=== PATIENT | female | born 1950 | race Caucasian/White ===

== ENCOUNTER 2016-07-26 07:30 | Inpatient (IN) | payer BC ==
--- NOTE | 2016-07-19 15:07 | HP ---
PREOPERATIVE HISTORY AND PHYSICAL: DATE OF ADMISSION/SURGERY: 07/26/16 DATE OF OFFICE VISIT: 07/18/16 ATTENDING PHYSICIAN: Dr. Margarita Dick. (DICTATED BY JEN ACUNA) PROCEDURE: Left total hip replacement. CHIEF COMPLAINT: Left hip pain. 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 Due to failure of conservative management, the patient would like to proceed with left total hip replacement. This is scheduled with Dr. Dick on 07/26/16. PAST MEDICAL HISTORY: Negative. PAST SURGICAL HISTORY: Right knee arthroscopy with partial meniscectomy. MEDICATIONS: Advil p.r.n. ALLERGIES: LODINE and SULFA. FAMILY HISTORY: Cancers and alcoholism. 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 She denies tobacco, alcohol, or recreational drug use. REVIEW OF SYSTEMS: A complete 14-point review of systems was reviewed with the patient and positive for syncopal episodes. Otherwise negative including negative for known anesthesia problems, negative for history of DVT, negative for MRSA, hep C or HIV. PHYSICAL EXAMINATION GENERAL: A well-developed, well-nourished 66-year-old female in no acute distress. VITAL SIGNS: Height 64, weight 140 pounds, blood pressure is 121/79, respirations 16, temperature 98.1. BMI of 24.0. HEENT: Head is normocephalic, atraumatic. NECK: Supple. No palpable lymph nodes. PULMONARY: Lungs clear to auscultation. No wheezes, rhonchi or rales. CARDIO: Regular rate and rhythm. S1, S2. No murmurs, rubs or gallops. No edema. ABDOMEN: Soft, nontender. Positive bowel sounds throughout. MUSCULOSKELETAL: Left lower extremity, the patient's skin is intact. No abrasions or open wounds. No tenderness to palpation along the hip. She can flex the hip to 90 degrees but has significant groin pain. 0 degrees of internal rotation, 30 degrees of external rotation, no groin pain. She can demonstrate active hip flexion and abduction. Additionally, no edema or varicosities. 5/5 ankle dorsiflexion and plantar flexion strength. 2+ palpable DP pulses. No hyperreflexia. No instability of the hip. NEUROLOGIC: Alert and oriented x3. Cranial nerves II through XII grossly intact. Sensation is intact to light touch. DIAGNOSTIC STUDIES: Radiographs that was done on 04/27/16 shows severe end- stage arthritis of the left hip joint. There is [id number] contact with obliteration of the joint space, osteophyte formation and subchondral sclerosis. IMPRESSION: A 66-year-old female with end-stage left hip osteoarthritis. PLAN: The patient is scheduled to undergo a left total hip replacement with Dr. Dick on 07/26/16. She will return to the office 10 to 14 days postop for followup and suture removal. A prescription for Percocet for postop pain, Colace for constipation and Coumadin for DVT prophylaxis was e-scribed to the patient's pharmacy for postoperative management. JEN ACUNA [id number]/[facility] #: [id number] AMA
[~2016-07-26 07:30] MED LIST: Dexamethasone IV* 4 MG/ML 1 ML (4 MG) IV SLOW PU ONE; Famotidine IV* 10 MG/ML 2 ML (20 mg) IV ONE
[2016-07-26] MEDS ORDERED: Famotidine IV* 10 MG/ML 2 ML (20 mg) ONE (09:16)
[2016-07-26] MEDS ORDERED: Dexamethasone IV* 4 MG/ML 1 ML (4 MG) ONE (09:17)
[2016-07-26] MEDS ORDERED: ceFAZolin 2 GM PREMIX(*) 2 GM/50 ML BAG IVPB ONE (09:17)
[2016-07-26] MEDS ORDERED: Ondansetron INJ* 2 MG/ML VIAL ONE ×2 (09:45→15:44)
[2016-07-26] MEDS ORDERED: Midazolam* 1 MG/ML 5 ML VIAL (5 MG) ONE (09:45)
[2016-07-26] MEDS ORDERED: Bupivacaine 0.5% SDV PF* 30 ML VIAL ONE (09:45)
[2016-07-26] MEDS ORDERED: Morphine PF AMP (0.5MG/ML)* 5 MG/10 ML AMP ONE (09:45)
[2016-07-26] MEDS ORDERED: KETAMINE HCL* 50 MG/ML 10 ML VIAL ONE (09:45)
[2016-07-26] MEDS ORDERED: Propofol* 10 MG/ML 20 ML BTL IV PUSH ONE (09:45)
[2016-07-26] MEDS ORDERED: DiMENhydriNATE IV* 50 MG/ML VIAL ONE ×2 (10:33→16:07)
[2016-07-26] MEDS ORDERED: Phenylephrine INJ* 10 MG/ML 1 ML VIAL (10 MG) ONE (10:36)
[2016-07-26] MEDS ORDERED: Nalbuphine* 20 MG/ML 1 ML VIAL IV PRN (11:05)
[2016-07-26] MEDS ORDERED: DiMENhydriNATE IV* 50 MG/ML VIAL IV PUSH PRN (11:05)
[2016-07-26] MEDS ORDERED: Lactated Ringers 500 ml BAG* 500 ML IV PRN (11:05)
[2016-07-26] MEDS ORDERED: Naloxone* 0.4 MG/ML 1 ML VIAL IV PRN (11:05)
[2016-07-26] MEDS ORDERED: Ondansetron INJ* 2 MG/ML VIAL IV PRN (11:05)
[2016-07-26] MEDS ORDERED: oxyCODONE/Acetamin 5/325 MG* TAB PO PRN ×2 (11:05)
[2016-07-26] MEDS ORDERED: Ropivacaine* 300 MG in NS 0.9% 250 ML* 240 ML EPIDURAL SCH (12:00)
--- NOTE | 2016-07-26 12:10 | RAD ---
Indication: LEFT total hip replacement. Osteoarthritis. Comparison: April 27, 2016 Technique: RIGHT lateral decubitus crosstable AP view LEFT hip 1039 hours Report: LEFT acetabular prosthetic component and LEFT femoral stem reamer/test fit device in place. No periprosthetic fracture evident. IMPRESSION: Intraoperative control film.
[2016-07-26] MEDS ORDERED: Bisacodyl SUPP* 10 MG SUPP PR PRN (12:44)
[2016-07-26] MEDS ORDERED: Magnesium Hydroxide LIQ* 30 ML UDC PO PRN (12:44)
[2016-07-26] MEDS ORDERED: Polyethylene Glycol 3350* 17 GM PACKET PO PRN (12:44)
--- NOTE | 2016-07-26 13:30 | RAD ---
Indication: Post LEFT total hip replacement. Comparison: 1039 hours intraoperative exam of the same date. Technique: AP pelvis and proximal LEFT femur as well as AP and crosstable lateral views LEFT hip. Report: Noncemented LEFT total hip prosthesis in place with normal alignment. Negative for periprosthetic fracture. Surrounding soft tissue edema and subcutaneous emphysema. IMPRESSION: Unremarkable immediate postop appearance following LEFT total hip replacement.
[2016-07-26] MEDS ORDERED: Nalbuphine* 20 MG/ML 1 ML VIAL ONE (14:33)
[2016-07-26] MEDS: Nalbuphine* 20 MG/ML 1 ML VIAL IV PRN ×2 (14:34→20:59)
[2016-07-26] MEDS ORDERED: Scopolamine 1.5 mg* PATCH ONE (16:07)
[2016-07-26] MEDS ORDERED: Warfarin TAB(*) 6 MG PO ONE (17:00)
[2016-07-26] MEDS ORDERED: Scopolamine 1.5 mg* PATCH TRANSDERM SCH (17:00)
[2016-07-26] MEDS: ceFAZolin VIAL(*) 1 GM in NS 0.9% 50 ML* 50 ML IVPB SCH (17:41)
[2016-07-26] MEDS: Docusate CAP* 100 MG PO SCH (20:23)
[2016-07-27] MEDS ORDERED: diPHENhydraMINE IV* 50 MG/ML 1 ml VIAL (BENADRYL) IV PRN (02:00)
[2016-07-27] MEDS ORDERED: Morphine INJ* 2 MG/ML 1 ML SYRINGE IV PRN (02:00)
[2016-07-27] MEDS: ceFAZolin VIAL(*) 1 GM in NS 0.9% 50 ML* 50 ML IVPB SCH ×2 (02:31→09:20)
--- NOTE | 2016-07-27 05:52 | OP ---
OPERATIVE REPORT: DATE OF OPERATION: 07/26/16 DATE OF : 54 SURGEON: Margarita Dick MD STITCH BONDING MACHINE OPERATOR: JEN Pavon Ms. did help throughout the procedure with preparation of the leg, wound retraction, manipu lation of the hip, and wound closure. ANESTHESIOLOGIST: Dr. Norris. ANESTHESIA: Spinal epidural. PRE-OP DIAGNOSIS: Severe end-stage degenerative osteoarthritis of the left hip joint. POST-OP DIAGNOSIS: Severe end-stage degenerative osteoarthritis of the left hip joint. PROCEDURE PERFORMED: Left total hip arthroplasty. ESTIMATED BLOOD LOSS: 250 cc. COMPLICATIONS: None. SPECIMEN: Femoral head and acetabular reaming sent to Pathology. HARDWARE USED: This is an uncemented [employer] Modular total hip arthroplasty hardware. For the cup, a Trita nium cluster hole shell 52D, one 25 mm cancellous bone screw was used. A Trident X3 0-degree polyet hylene insert, 32D was used. For the femur, an Accolade TMZF, size 4, 132-degree neck and for the h ead a Biolox delta ceramic V40 femoral head 32 +0. BRIEF HISTORY/INDICATION: Ms. Colmenares is a 66-year-old female with years of increasingly severe left hip pain. She failed conservative treatment with antiinflammatories, pain medication, ambulatory as sistive devices and physical therapy. She elected to undergo left total hip arthroplasty due to con tinued pain and decreased quality of life. Radiographs confirmed end-stage arthritis. Informed consent was obtained from the patient. She understood the risks of surgery included but we re not limited to bleeding, infection, damage to nearby structures, continued pain, need for further surgery, intraoperative fracture, nerve palsy, hardware failure or loosening, stroke, heart attack, blood clot, , dislocation and leg length discrepancy. She wished to proceed. INTRAOPERATIVE FINDINGS: Intraoperatively, the patient was noted to have severe arthritis with comp lete loss of cartilage along the femoral head and acetabulum. There was extensive osteophyte formati on. DESCRIPTION OF PROCEDURE: Ms. Colmenares was identified in the preanesthesia unit. Her left lower extre mity was marked as the correct operative site. Informed consent was signed and placed in the chart. The patient was taken to the operating room and placed under spinal epidural anesthesia. A River catheter was placed. The patient was placed in the right lateral decubitus position on the peg boar d. All bony prominences were well padded. Left lower extremity was prepped and draped in the usual sterile fashion. Preop time-out was made to correctly identify the patient's side and site. Appro priate perioperative antibiotics were given within 1 hour of incision. A 12-cm posterior hip incision was made with a 10-blade and carried down to the lateral fascial laye r. The lateral fascial layer was then incised in line with the skin incision. Charnley retractor w as placed. The piriformis and conjoint tendons were identified. These were elevated off the rating specialist olateral femur using electrocautery and tagged with two #5 Ethibonds. Electrocautery was then used to make a standard posterolateral capsular flap. This was also tagged with two #5 Ethibonds. The hip was carefully dislocated. Lesser troch to center of the femoral head measured 50 mm. Oscil lating saw was used to make the appropriate femoral neck cut. The femoral head was sent to pathology . The femur was carefully retracted anteriorly. Long-handled knife was used to remove any remaining l abrum from the acetabular rim. The acetabulum was sequentially reamed up to a size 51. A good shawneee ding bone bed was obtained. 51 trial had excellent fit. A Tritanium 52D cluster hole shell was cho sen as the final implant. This was impacted into the acetabulum without difficulty. The cup was st able with appropriate anteversion and abduction angle. One 25-mm screw was placed in the superior p osterior quadrant for extra stability. A Trident X3 0- degree liner, 32D was chosen. This was impa cted into the acetabular cup without difficulty. Stability of the liner was checked and rechecked a nd noted to be stable. Next attention was turned to preparation of the proximal femur. A canal finder was used to enter th e proximal femur. Proximal femur was sequentially broached up to a size 4. Size [address] ability and fit as well as appropriate anteversion. A 132-degree neck trial as well as a 32 +0 femor al head trial was chosen. Lesser troch to center of the femoral head measured 52 mm. The hip was r educed and taken through a range of motion. The hip was stable in all positions. The hip was carefully dislocated. All trials were carefully removed. Final implant chosen was an A ccolade TMZF, size 4 with a 132-degree neck. This was impacted into the femur without difficulty. There was good stability and appropriate anteversion. Final head chosen was a Biolox delta ceramic femoral head 32 +0. This was impacted onto the femoral neck. The hip was reduced and taken through a range of motion. The hip was stable in all positions. Soft tissue tension and leg lengths were appropriate. The hip was carefully irrigated with sterile saline. Previously tagged capsule and tendons were inocencio pproximated to the posterolateral femur through two trochanteric drill holes. The lateral fascial l cody was reapproximated using interrupted #1 Vicryls. The rest of the incision was closed in a laye red fashion using 0 and 2-0 Vicryls. Skin was closed using running 3-0 Monocryl and Dermabond. Maximilian rile Adaptic, 4x4s, and paper tape were used to cover the incision. The patient's anesthesia was reversed without difficulty. She was taken to the PACU in stable condi tion. Intended weightbearing will be weightbearing as tolerated with posterior hip precautions. In tended DVT prophylaxis will be Coumadin with a Lovenox bridge. [id number]/[facility] #: [id number]
[2016-07-27] MEDS ORDERED: oxyCODONE/Acetamin 5/325 MG* TAB PO PRN (06:00)
[2016-07-27] MEDS ORDERED: oxyCODONE TAB* 5 MG TAB PO PRN (06:00)
[2016-07-27 07:18] LABS: Hematocrit 31 % (35-47); Hemoglobin 10.4 g/dl (12.0-16.0)
[2016-07-27 07:40] LABS: BUN/Creatinine Ratio 21.5 (8-20); Calcium 8.4 mg/dL (8.6-10.3); EGFR Non-African American 91.8 (>60)
--- NOTE | 2016-07-27 07:41 | PN ---
Progress Note - Progress Note SOAP: Subjective: Pt. is doing well, pain controlled. Nausea overnight. C/o R ant thigh numbness. Objective: RLE - NVI. decreased sens light touch anterior thigh. LLE - thigh soft, distally nvi with +df/pf, full sens lt, 2+dp pulse. Vital Signs: Temp Pulse Resp BP Pulse Ox 98.3 F 60 18 91/49 99 07/27/16 03:26 07/27/16 03:26 07/27/16 04:22 07/27/16 03:26 07/27/16 03:26 Laboratory Results - last 24 hr 07/27/16 07/27/16 06:12 06:13 Hgb 10.4 L Hct 31 L INR (Anticoag Therapy) 1.04 Assessment: 66 yo F pod 1 s/p LTHA Plan: R thigh numbness- epidural removed within the hour vs positioning intra-op - will follow. LLE - wbat with post. hip precautions pt/ot 8 mg coumadin tonight with lovenox today xrays satisfactory cmp pending plan d/c to home this afternoon vs 07/28
[2016-07-27] MEDS: Ondansetron TAB* 4 MG PO PRN (07:45)
[2016-07-27] MEDS: oxyCODONE/Acetamin 5/325 MG* TAB PO PRN ×3 (07:45→17:51)
[2016-07-27] MEDS: Docusate CAP* 100 MG PO SCH ×2 (09:19→21:59)
[2016-07-27] MEDS: Enoxaparin(*) 30 MG/0.3 ML SYR SUBCUT SCH (12:03)
[2016-07-27] MEDS ORDERED: Warfarin TAB(*) 4 MG PO SCH (17:00)
[2016-07-27] MEDS ORDERED: Warfarin TAB(*) 6 MG PO SCH (17:00)
[2016-07-28] MEDS: Ondansetron TAB* 4 MG PO PRN (00:04)
[2016-07-28] MEDS: Acetaminophen TAB* 325 MG PO PRN ×2 (00:04→08:01)
[2016-07-28 07:21] LABS: Hematocrit 30 % (35-47); Hemoglobin 10.1 g/dl (12.0-16.0); Mean Platelet Volume 8 um3 (7.4-10.4)
[2016-07-28 07:40] VITALS: BP 100/63
[2016-07-28] MEDS: Docusate CAP* 100 MG PO SCH (08:01)
--- NOTE | 2016-07-28 08:32 | PN ---
Progress Note - Progress Note SOAP: Subjective: 66 y/o female s/p L ANUSHKA by Dr. Dick 07/26/2016. Patient denies numbness of R leg , able to walk, participate in PT well, no complaints. Pain well controlled with percocet. Objective: General- Well appearing, NAD, AO MSK- Dressing c/d/i, no drainage, erythema noted, mild eccymosis distal incision. +DF/ pF bl Le's, neg homans sign b/l, sensation to light touch grossly intact b/l LEs. Vital Signs Temp 98.9 F 07/28/16 07:19 Pulse 84 07/28/16 07:19 Resp 12 07/28/16 08:00 BP 100/63 07/28/16 07:19 Pulse Ox 97 07/28/16 08:00 Intake & Output 07/27/16 07/28/16 07/28/16 18:59 06:59 18:59 Intake Total 1341 390 Output Total 600 1800 Balance 741 -1410 Intake: IV Fluids 866 LR 866 IVPB 115 ABX - CEFAZOLIN 115 Oral 360 390 Output: Urine 400 1800 River 200 Laboratory Results - last 24 hr 07/28/16 07/28/16 07:01 07:01 Hgb 10.1 L Hct 30 L Plt Count 126 L MPV 8 INR (Anticoag Therapy) 1.67 H Assessment: 66 y/o female s/p L ANUSKHA by Dr. Dick 07/26/2016. Plan: - DVT prophylaxis- Lovenox today, coumadin tonight- 4mg, 4mg saturday night, INR draw Saturday - Follow up with Dr. Dick within 10 days - Continue PT exercises - No NSAIDS at home Active Medications Generic Name Dose Route Start Last Admin Trade Name Freq PRN Reason Stop Dose Admin Acetaminophen 650 mg 07/26/16 12:44 07/28/16 08:01 Tylenol Tab* PO 650 mg Q4H PRN Administration PAIN OR TEMPERATURE Bisacodyl 10 mg 07/26/16 12:44 Dulcolax Supp* DC DAILY PRN constipation Diphenhydramine HCl 12.5 mg 07/27/16 02:00 Benadryl Iv* IV Q6H PRN PRURITIS Docusate Sodium 100 mg 07/26/16 21:00 07/28/16 08:01 Colace Cap* PO 100 mg BID YEN Administration Enoxaparin Sodium 30 mg 07/27/16 11:00 07/27/16 12:03 Lovenox(*) SUBCUT 30 mg Q24H YEN Administration Lactated Ringer's 1,000 mls @ 100 mls/hr 07/26/16 13:00 07/27/16 02:30 Lactated Ringers 1000 Ml Bag* IV 100 mls/hr PER RATE YEN Administration Lactulose 30 ml 07/26/16 12:44 Lactulose* PO Q6H PRN constipation Magnesium Hydroxide 30 ml 07/26/16 12:44 07/27/16 21:59 Milk Of Magnesia Liq* PO 30 ml Q6H PRN Administration constipation Morphine Sulfate 2 mg 07/27/16 02:00 Morphine Inj (Syringe)* IV Q2H PRN PAIN Ondansetron HCl 4 mg 07/27/16 06:00 07/28/16 00:04 Zofran Tab* PO 4 mg Q6H PRN Administration NAUSEA Oxycodone HCl 10 mg 07/27/16 06:00 Roxycodone Tab* PO Q4H PRN SEVERE PAIN Oxycodone/Acetaminophen 1 tab 07/27/16 06:00 07/28/16 03:44 Percocet 5/325 Tab* PO 1 tab Q3H PRN Administration PAIN - MODERATE Oxycodone/Acetaminophen 2 tab 07/27/16 06:00 07/27/16 17:51 Percocet 5/325 Tab* PO 2 tab Q3H PRN Administration PAIN - MODERATE Pharmacy Profile Note 1 note 07/29/16 17:00 Scopolomine Patch Remove* PATCH OFF 07/29/16 17:01 ONCE ONE Pharmacy Profile Note 0 note 07/27/16 17:00 07/27/16 17:02 Coumadin Daily Reminder* FOLLOW UP 1 note 1700 YEN Administration Polyethylene Glycol/Electrolytes 17 gm 07/26/16 12:44 Miralax* PO DAILY PRN Constipation Scopolamine 1 patch 07/26/16 17:00 07/26/16 16:00 Transderm-Scop 1.5 Mg Patch* TRANSDERM 1 patch Q72H YEN Administration Warfarin Sodium 8 mg 07/27/16 17:00 07/27/16 17:01 Coumadin Tab(*) PO 8 mg DAILY@1700 YEN Administration Protocol
[2016-07-28] MEDS: Enoxaparin(*) 30 MG/0.3 ML SYR SUBCUT SCH (09:18)
--- NOTE | 2016-07-28 11:04 | DS ---
DISCHARGE SUMMARY: DATE OF ADMISSION: 07/26/16 DATE OF DISCHARGE: 07/28/16 CHIEF COMPLAINT: Left hip osteoarthritis. DISCHARGE DIAGNOSIS: Left total hip replacement. PROCEDURE: Left total hip replacement. CONSULTATIONS: 1. Physical Therapy. 2. Occupational Therapy. BRIEF HISTORY: Ms. Colmenares is a very pleasant 66-year-old female with severe end - stage degenerative osteoarthritis of the left hip, who failed conservative treatment and elected to undergo a left total hip arthroplasty on 07/26/[address] Margarita Dick. HOSPITAL COURSE: Ms. Colmenares was admitted to [facility] on 07/26/16, where she underwent an uncomplicated total hip replacement. Postoperatively, she recovered on the Surgical Short-Stay Unit. Her River was removed on postoperative day 2 and she was voiding on her own without difficulty. She advanced to a regular diet and her pain was controlled with p.o. Percocet. She was restarted on her home medications. Her labs and vital signs remained stable and she was able to work well with physical therapy, bearing weight as tolerated on the left lower extremity. Her DVT prophylaxis was managed with Lovenox and Coumadin until she reached a therapeutic INR. On postoperative day 1, she was noted to have some numbness of her right lower extremity; however, this completely resolved by time of discharge. By postoperative day 2, she is orthopedically and medically stable for discharge to go home with home services. PHYSICAL EXAMINATION: General: Well appearing, in no acute distress. Alert and oriented. Vital Signs: On day of discharge, temperature 98.9, pulse 84, respirations 12, blood pressure 100/63, and pulse oxygenation 97% room air. Musculoskeletal: The dressing is clear, dry, intact with no drainage or erythema noted. Mild ecchymosis seen at the distal portion of the incision. Positive dorsiflexion and plantarflexion in the bilateral lower extremities. Negative Homans sign bilaterally. Sensation to light touch is grossly intact in the bilateral lower extremities. DIAGNOSTIC STUDIES/LAB DATA: Laboratory data on date of discharge: Hemoglobin and hematocrit of 10.1 and 30 with an INR of 1.67. DISCHARGE MEDICATIONS: 1. Coumadin 2 mg tablets 1 to 2 tablets as directed every day at 5 p.m. 2. Tylenol 325 to 650 mg p.o. q.4 hours p.r.n., not to exceed 4000 mg in a day. 3. Colace 100 mg tablets p.o. b.i.d. 4. Percocet 5/325 mg 1 to 2 tablets every 4 hours as needed for pain. CONDITION ON DISCHARGE: Stable. DISCHARGE INSTRUCTIONS: Ms. Colmenares is a very pleasant 66-year-old female, postoperative day 2 status post left total hip arthroplasty, which was uncomplicated. She is orthopedically and medically stable for discharge to go home with home services. Her labs and vital signs are stable. She will restart her home medications. She will take 4 mg of Coumadin tonight, 4 mg on Saturday, and will have a repeat INR check on Saturday. She will have INR draws on Mondays and with visiting home nurse services. She will remain weightbearing as tolerated on the left lower extremity and have home physical therapy approximately twice a week. She will take Percocet as needed for pain control and was educated not to exceed 4000 mg of Tylenol on a daily basis. She will return to see Dr. Dick in approximately 10 days for incision check and suture removal. She is instructed to go to the ER immediately should she develop chest pain or shortness of breath and to call the office if she has any questions such as fever, pain, or redness around the incision site. JEN GARCIA [id number]/[facility] #: [id number] MTDD
[2016-07-29] MEDS ORDERED: Scopolomine PATCH Remove* 1 NOTE MISC PATCH OFF ONE (17:00)
== END 2016-07-28 11:00 | disposition home health service (06) | DRG 301 ==
LOC: AA 09:20 → SSU 12:44
PROVIDERS: ADMIT Orthopaedic Surgery Adult Reconstructive Orthopaedic Surgery; ATTEND Orthopaedic Surgery Adult Reconstructive Orthopaedic Surgery
PROC: 0SRB04A Replacement of Left Hip Joint with Ceramic on Polyethylene Synthetic Substitute, Uncemented, Open Approach (ICD-10-PCS; principal; 2016-07-26 11:00)
DX: M16.12 Unilateral primary osteoarthritis, left hip (principal); M25.752 Osteophyte, left hip; Z79.01 Long term (current) use of anticoagulants; Z88.2 Allergy status to sulfonamides; Z80.9 Family history of malignant neoplasm, unspecified; Z81.1 Family history of alcohol abuse and dependence; Z88.8 Allergy status to other drugs, medicaments and biological substances; R20.0 Anesthesia of skin
CPT/HCPCS: 36415; 62327; 72170; 80048; 85014; 85018; 85049; 85610; 94760; A9270-GY; C1713; C1776; J0690; J1100; J1240; J1650; J2250; J2300; J2405; J2704; J2795

== ENCOUNTER 2018-04-09 02:41 | Inpatient (IN) | payer BC ==
[2018-04-09] MEDS ORDERED: NS 0.9% 1000 ML** 1,000 ML IV ONE (03:09)
[2018-04-09] MEDS ORDERED: Ondansetron INJ* 2 MG/ML VIAL IV ONE (03:09)
[2018-04-09] MEDS ORDERED: Morphine VIAL* 10 MG/ML 1 ML VIAL IV ONE ×2 (03:09→03:51)
--- NOTE | 2018-04-09 03:11 | ED ---
Abdominal Pain/Female - HPI Summary HPI Summary: Pt is a 68 y/o F presenting to the ED with a chief complaint of abd pain onset 2129 in her mid-lower abd described as spasms. Her last bowel movement was the morning of 04/08, which is no different than usual. Pt reports nausea. Pt denies vomiting, diarrhea, back pain, or hx of abd surgeries. - History of Current Complaint Chief Complaint: EDAbdPain Stated Complaint: ABD PAIN Time Seen by Provider: 04/09/18 03:01 Hx Obtained From: Patient Onset/Duration: Sudden Onset, Lasting Hours, Still Present Timing: Constant Severity Initially: Moderate Severity Currently: Severe Pain Intensity: 9 Pain Scale Used: 0-10 Numeric Location: Umbilical Radiates: No Character: Other: - spasms Aggravating Factor(s): Movement, Deep Breaths Alleviating Factor(s): Nothing Associated Signs and Symptoms: Positive: Diaphoresis, Nausea. Negative: Fever, Back Pain, Vomiting, Diarrhea Allergies/Adverse Reactions: Allergies Allergy/AdvReac Type Severity Reaction Status Date / Time MS Etodolac [From [facility]] Allergy Severe Hives Verified 04/09/18 02:49 PMH/Surg Hx/FS Hx/Imm Hx Previously Healthy: Yes Endocrine/Hematology History: Denies: Hx Diabetes Cardiovascular History: Denies: Hx Hypertension, Hx Pacemaker/ICD Musculoskeletal History: Reports: Hx Arthritis - left hip, Other Musculoskeletal History - bilateral miniscus tear right knee Denies: Hx Rheumatoid Arthritis, Hx Osteoporosis, Hx Scoliosis Sensory History: Reports: Hx Contacts or Glasses Denies: Hx Hearing Aid Opthamlomology History: Reports: Hx Contacts or Glasses Neurological History: Denies: Hx Headaches, Other Neuro Impairments/Disorders Psychiatric History: Denies: Hx Panic Disorder - Surgical History Surgery Procedure, Year, and Place: RT KNEE MENISCUS Hx Anesthesia Reactions: No Infectious Disease History: No Infectious Disease History: Denies: Traveled Outside the [place] in Last 30 Days - Family History Known Family History: Negative: Hypertension - Social History Alcohol Use: None Hx Substance Use: No Substance Use Type: Reports: None Hx Tobacco Use: Yes Smoking Status (MU): Former Smoker Amount Used/How Often: smoked 9 years, 1/2 ppd Review of Systems Positive: Skin Diaphoresis. Negative: Fever Positive: Abdominal Pain, Nausea. Negative: Vomiting, Diarrhea Negative: Myalgia All Other Systems Reviewed And Are Negative: Yes Physical Exam - Summary Physical Exam Summary: VITAL SIGNS: Reviewed. GENERAL: Patient is diaphoretic, but otherwise a well-developed and nourished female who is lying uncomfortably in the stretcher. Patient is not in any acute respiratory distress. HEAD AND FACE: No signs of trauma. No ecchymosis, hematomas or skull depressions. No sinus tenderness. EYES: PERRLA, EOMI x 2, No injected conjunctiva, no nystagmus. EARS: Hearing grossly intact. Ear canals and tympanic membranes are within normal limits. MOUTH: Oropharynx within normal limits. NECK: Supple, trachea is midline, no adenopathy, no JVD, no carotid bruit, no c- spine tenderness, neck with full ROM. CHEST: Symmetric, no tenderness at palpation LUNGS: Clear to auscultation bilaterally. No wheezing or crackles. CVS: Regular rate and rhythm, S1 and S2 present, no murmurs or gallops appreciated. ABDOMEN: Mild abd tenderness. No signs of distention. No rebound no guarding, and no masses palpated. Bowel sounds are normal. EXTREMITIES: FROM in all major joints, no edema, no cyanosis or clubbing. NEURO: Alert and oriented x 3. No acute neurological deficits. Speech is normal and follows commands. SKIN: Dry and warm Triage Information Reviewed: Yes Vital Signs On Initial Exam: Initial Vitals Temp Pulse Resp BP Pulse Ox 97.5 F 72 20 128/65 97 04/09/18 02:45 04/09/18 02:45 04/09/18 02:45 04/09/18 02:45 04/09/18 02:45 Vital Signs Reviewed: Yes Diagnostics - Vital Signs Vital Signs Temp Pulse Resp BP Pulse Ox 04/09/18 02:45 97.5 F 72 20 128/65 97 - Laboratory Result Diagrams: 04/09/18 03:22 04/09/18 03:22 Lab Statement: Any lab studies that have been ordered have been reviewed, and results considered in the medical decision making process. - CT Abd/pelv CT CT Interpretation Completed By: Radiologist Summary of CT Findings: 1. Borderline fluid distention of pelvic small bowel segments with adjacent. points of transition in the central pelvis suggesting a low grade closed-loop. small bowel obstruction. 2. Otherwise negative CT abdomen/pelvis. ED physician has reviewed this report. - EKG 0321 Cardiac Rate: NL - 62bpm EKG Rhythm: Sinus Rhythm ST Segment: Normal Ectopy: None 0537 Cardiac Rate: NL - 66bpm EKG Rhythm: Sinus Rhythm ST Segment: Normal Ectopy: None EKG Comparison: No Significant Change Abdominal Pain Fem Course/Dx - Course Course Of Treatment: Pt is a 68 y/o F presenting to the ED with a chief complaint of abd pain onset 2129 in her mid-lower abd described as spasms. Pt reports nausea. Pt denies vomiting, diarrhea, back pain, or hx of abd surgeries. - Diagnoses Provider Diagnoses: SBO (small bowel obstruction) Discharge - Sign-Out/Discharge Documenting (check all that apply): Patient Departure - Discharge Plan Condition: Stable Disposition: ADMITTED TO [facility] Referrals: Simi Anaya MD [Primary Care Provider] - - Attestation Statements Document Initiated by Scribe: Yes Documenting Scribe: Lillian Liz Provider For Whom Scribe is Documenting (Include Credential): Shivam Nguyen MD. Scribe Attestation: Lillian Louise scribed for Shivam Nguyen MD. on 04/09/18 at 0632. Status of Scribe Document: Ready Consult Consult: [id number] - Spoke with Dr. Sena of surgery who will be coming to see the patient shortly. 0630 - Dr. Sena will be bringing the pt into [facility].
[2018-04-09 03:48] LABS: ABS Basophils 0 10^3/ul (0-0.2); ABS Eosinophils 0 10^3/ul (0-0.6); ABS Lymphocytes 1.8 10^3/ul (1.0-4.8); ABS Monocytes 0.4 10^3/ul (0-0.8); ABS Neutrophils 5.7 10^3/ul (1.5-7.7); ABS Nucleated RBC 0 10^3/ul; Eosinophil % 0.5 %; Hematocrit 40 % (35-47); Hemoglobin 13.3 g/dl (12.0-16.0); Lymphocyte % 22.7 %; Mean Corpuscular HGB Conc 34 g/dl (31-36); Mean Corpuscular Hemoglobin 32 pg (27-31); Mean Corpuscular Volume 96 fL (80-97); Mean Platelet Volume 7.8 fL (7.4-10.4); Nucleated Red Blood Cells % 0; Platelet Count 214 10^3/ul (150-450); Red Blood Count 4.13 10^6/ul (4.00-5.40); Red Cell Distribution Width 13 % (10.5-15)
[2018-04-09 03:56] LABS: Activated Partial Thrombo Time 26.4 seconds (26.0-36.3); INR 0.89 (0.77-1.02)
[2018-04-09 04:07] LABS: Albumin 4.4 g/dL (3.2-5.2); Albumin/Globulin Ratio 1.6 (1-3); BUN/Creatinine Ratio 20.3 (8-20); C Reactive Protein 2.18 mg/L (<8.01); Calcium 9.7 mg/dL (8.6-10.3); EGFR African American 88.1 (>60); EGFR Non-African American 72.8 (>60); Globulin 2.7 g/dL (2-4); Magnesium 1.8 mg/dL (1.9-2.7); Potassium 4.2 mmol/L (3.5-5.0); Total Bilirubin 0.6 mg/dL (0.2-1.0); Total Protein 7.1 g/dL (6.4-8.9)
[2018-04-09] MEDS ORDERED: Iohexol 300* (CONTRAST) 10 ML SDV IV ONE (04:14)
[2018-04-09] MEDS ORDERED: Magnesium Sulfate 2 GM IV* 2 GM/50 ML BAG IVPB ONE (04:15)
[2018-04-09 05:26] LABS: Urine Appearance Clear; Urine Bacteria Absent (Absent); Urine Bilirubin Negative (Negative); Urine Blood Negative (Negative); Urine Color Yellow; Urine Glucose Negative (Negative); Urine Ketones Trace (Negative); Urine Nitrite Negative (Negative); Urine Protein Negative (Negative); Urine Red Blood Cell Absent (Absent); Urine Squamous Epithelial Cell Present (Absent); Urine Urobilinogen Negative (Negative); Urine White Blood Cell Trace(0-5/hpf) (Absent)
--- NOTE | 2018-04-09 06:53 | PN ---
Progress Note - Progress Note Date of Service: 04/09/18 Note: Surgery Progress Note Please see full dictated H&P for further details. But briefly, this patient is a healthy 68 yo F who presented to the ED with acute onset severe abdominal pain , beginning around 10:30 last night. She had normal vitals and labs but on CT was found to have a closed loop small bowel obstruction. She has no past abdominal surgeries. I explained to the patient and her that an urgent exploration would be required to assess the source of this bowel obstruction and to relieve it, given the risk of ischemia in closed loop obstructions. I explained that primary bowel obstructions in adults are often due to small bowel masses, and if this is noted, I would do a bowel resection. The surgery will be a diagnostic laparoscopy, possible exploratory laparotomy, possible bowel obstruction, possible ostomy. I explained that the risks include but are not limited to bleeding, infection (wound and intraabdominal), injury to nearby anatomic structure (small bowel, colon, liver, bladder and others), the risk of anastomotic leak potentially requiring reoperation and ostomy, the risk of adverse effects from medications and anesthesia. She understands these things and wishes to proceed.
[2018-04-09] MEDS ORDERED: Succinylcholine* 20 MG/ML 10 ML VIAL ONE (07:14)
[2018-04-09] MEDS ORDERED: Ondansetron INJ* 2 MG/ML VIAL ONE (07:14)
[2018-04-09] MEDS ORDERED: Lidocaine 2% PF * 5 ML VIAL ONE (07:14)
[2018-04-09] MEDS ORDERED: Ketorolac INJ* 30 MG/ML 1 ML VIAL ONE (07:14)
[2018-04-09] MEDS ORDERED: Dexamethasone IV* 4 MG/ML 1 ML (4 MG) ONE (07:14)
[2018-04-09] MEDS ORDERED: Propofol* 10 MG/ML 20 ML BTL ONE (07:14)
[2018-04-09] MEDS ORDERED: Cisatracurium* 2 MG/ML MDV 5 ML ONE (07:15)
[2018-04-09] MEDS ORDERED: fentaNYL* 50 MCG/ML 2 ML VIAL (100 MCG VIAL) ONE (07:15)
[2018-04-09] MEDS ORDERED: Midazolam* 1 MG/ML 5 ML VIAL (5 MG) ONE (07:15)
[2018-04-09] MEDS ORDERED: ceFAZolin 2 GM PREMIX in ORs 2 GM/50 ML BAG IVPB ONE (07:40)
--- NOTE | 2018-04-09 07:49 | HP ---
HISTORY AND PHYSICAL: DATE OF ADMISSION: 04/09/18 SERVICE: General Surgery. ATTENDING SURGEON: Sena Sena MD REASON FOR ADMISSION: Closed loop small bowel obstruction, abdominal pain. HISTORY OF PRESENT ILLNESS: Ms. Colmenares is a very pleasant and healthy 68-year- old female who presented to the emergency room after acute onset of mid abdominal pain yesterday evening beginning around 10:30 p.m. The patient states that she was in her normal state of health and all of a sudden last night felt a sharp and severe upper abdominal pain. She said that she did feel nauseous; however, she did not vomit. She denied having any fevers. Given the intensity of the pain, she came to the emergency room for evaluation. She had normal labs and normal lactate. She was found on CT scan to have evidence of a closed loop small bowel obstruction. She denies having any surgical history in the past. At present, she feels more comfortable given that she has received some morphine; however, she says that the pain is still somewhat low grade. The patient notes that she has recently had a normal colonoscopy in the past year. She denies any other symptoms such as weight loss in the past several months. She has had no night fevers, night sweats. She denies having any symptoms of flushing or tachycardia. She has overall been in her normal state of health until last night. PAST MEDICAL HISTORY: None. PAST SURGICAL HISTORY: She had a left hip surgery. MEDICATIONS: None. ALLERGIES: ETODOLAC. FAMILY HISTORY: Noncontributory. SOCIAL HISTORY: The patient is . She has 5 children. 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 REVIEW OF SYSTEMS: Negative except for abdominal pain, nausea. PHYSICAL EXAMINATION GENERAL: An older woman lying in bed, in no apparent distress but anxious. VITAL SIGNS: Temperature is 97.5, heart rate is 60, respiratory rate is 14, O2 sat is 93% O2 on room air, and blood pressure is 102/64. HEENT: Normocephalic and atraumatic. RESPIRATORY: Clear to auscultation bilaterally. CARDIOVASCULAR: Regular rate and rhythm. ABDOMEN: Soft. Tender in the lower abdomen with no rebound. No palpable masses. A small umbilical hernia. EXTREMITIES: Warm and well perfused. No edema. LABORATORY VALUES: White blood cell count is 8, hemoglobin 13.3, hematocrit is 40, platelets are 214,000. INR is 0.89. Sodium is 137, potassium is 4.2, chloride 105, BUN 16, creatinine is 0.79, glucose is 197. Lactic acid is 1.8. LFTs are normal. CRP is 2.18. Amylase is 25. IMAGING: CT abdomen and pelvis shows borderline fluid distention in pelvic, small bowel segments with adjacent point of transition in the central pelvis suggesting a low-grade closed loop small bowel obstruction. Otherwise, negative CT abdomen and pelvis. ASSESSMENT AND PLAN: Ms. Colmenares is a healthy 68-year-old female with no past surgical history who presents with acute onset abdominal pain since last night who was found on CT scan to have what looks to be a closed loop small bowel obstruction. Given these findings, consent was obtained for urgent diagnostic laparoscopy, possible exploratory laparotomy, possible bowel resection, possible ostomy. I explained in detail to the patient and her , the risks, benefits, and alternatives of the surgery and that the risks include but are not limited to bleeding, infection both of the wound and also intraabdominally, injury to nearby anatomic structures such as the small bowel, the colon, the liver, bladder and the possibility of anastomotic leak should a bowel resection be performed. I also advised that although it is very unlikely that she would need an ostomy, it is always a possibility. There is also a very small risk from scarring of the incision as well as adverse reaction from medications and anesthesia. She understands these things and she wishes to proceed. [id number] #: [id number] MTDD
[2018-04-09] MEDS ORDERED: EPHEDrine (Pressors)* 50 MG/ML VIAL ONE (08:11)
[2018-04-09] MEDS ORDERED: fentaNYL* 50 MCG/ML 2 ML VIAL (100 MCG VIAL) IV PRN (08:55)
[2018-04-09] MEDS ORDERED: Naloxone* 0.4 MG/ML 1 ML VIAL IV PRN (08:55)
[2018-04-09] MEDS ORDERED: DiMENhydriNATE IV* 50 MG/ML VIAL IV PUSH PRN (08:55)
[2018-04-09] MEDS ORDERED: PROCHLORPERAZINE INJ 5 MG/ML 2 ML VIAL IV PRN (08:55)
[2018-04-09] MEDS ORDERED: Metoclopramide IV* 5 MG/ML 2 ML VIAL ONE (08:58)
[2018-04-09] MEDS ORDERED: Glycopyrrolate IV* 0.2 MG/ML 1 ML VIAL ONE (09:01)
[2018-04-09] MEDS ORDERED: Neostigmine Methylsulfate* 1 MG/ML 10 ML VIAL (1 mg/ml) ONE (09:01)
[2018-04-09] MEDS ORDERED: Acetaminophen TAB* 325 MG PO PRN (09:39)
[2018-04-09] MEDS ORDERED: Lactated Ringers 1000 ML Bag* 1,000 ML IV ONE (09:39)
[2018-04-09] MEDS ORDERED: HYDROcodone/ACETAMIN 5-325 MG* 1 TAB PO PRN ×2 (09:40)
[2018-04-09] MEDS ORDERED: Morphine INJ* 2 MG/ML 1 ML SYRINGE (TWO MG - NEW SYRINGE VERSION) IV PRN ×2 (09:42)
[2018-04-09] MEDS ORDERED: Ondansetron INJ* 2 MG/ML VIAL IV PRN (09:44)
--- NOTE | 2018-04-09 11:02 | OP ---
OPERATIVE REPORT: DATE OF OPERATION: 04/09/18 DATE OF : 54 SERVICE: General Surgery. SURGEON: Sena Sena MD. ELECTRO OPTICS ENGINEER: Avelino Hale MD. ANESTHESIOLOGIST: Dr. Livan Escobedo. PRE-OP DIAGNOSIS: Closed loop small-bowel obstruction. POST-OP DIAGNOSIS: Closed loop small-bowel obstruction and adhesions. OPERATIVE PROCEDURE: Diagnostic laparoscopy, lysis of adhesions. ESTIMATED BLOOD LOSS: Minimal, less than 10 cc. INDICATIONS: Ms. Colmenares is a 68-year-old female without significant past medical history and no history of abdominal surgery who presented to the emergency room with an acute onset of abdominal pain that began the evening prior. She was found in the emergency room to have normal vitals, normal labs, and CT scan that was concerning for closed loop small-bowel obstruction. Given this finding and her significant abdominal pain, informed consent was obtained for an urgent diagnostic laparoscopy, possible exploratory laparotomy, possible bowel resection. She understood the risks, benefits, and alternatives of the procedure and she wished to proceed. DESCRIPTION OF PROCEDURE: The patient was brought back to the operating room and placed on the operating table in the supine position. Venodyne boots were placed in the bilateral lower extremities for DVT prophylaxis. Antibiotics with Ancef were administered prior to incision. General endotracheal anesthesia was induced. The patient's abdomen was prepped and draped in normal sterile fashion and the left arm was tucked. Prior to beginning the procedure, a time-out was performed verifying the patient's name, MR number, and the procedure to be performed. Next, 0.25% Marcaine was infiltrated into the left upper quadrant. A small skin incision was made and under direct visualization, the abdomen was entered using the Optiview technique and the 5 mm trocar. Once the abdomen was entered, insufflation was obtained to about 12 mmHg and once this was done, a 5, 30 laparoscope was placed into the abdominal cavity. Upon general inspection of the abdominal cavity, there was no apparent injury that had been made. Next, under direct visualization, two more 5 mm trocars were placed, one in the left lower quadrant and one in the left lateral abdomen. This was done after administering 0.25% Marcaine. Next, the patient was positioned in Trendelenburg with right side up. General inspection of the abdomen showed that there were no adhesions of the anterior abdominal wall. There was an adhesion of the right colon to the lateral sidewall. The right lower quadrant was examined. There was ovary and fimbria that was stuck to the lateral sidewall and was under a peritoneal fold. There was also a band that went from the sidewall over towards the omentum and this was clipped. Once this was done, the terminal ileum was identified and the small-bowel was run from the terminal ileum proximally to the ligament of Treitz. During this examination of the small-bowel, there was a segment of small-bowel that came out from the pelvis that was clearly the involved loop of small-bowel given that it was hyperemic and abnormal in appearance. It was approximately about 10 to 15 cm of affected small-bowel. There did not appear to be any chronic adhesions to this segment, giving the idea that if it had been indeed a closed loop obstruction that it had resolved on its own. It was carefully palpated. There was no evidence of any masses within the small- bowel. The mesentery also appeared be normal. After the affected segment was encountered, the small- bowel was run further proximally and there were no apparent abnormalities noted and no other adhesions. Once this was done, the colon was examined on the right side and again, there was 1 adhesion to the sidewall. Both inguinal canals were examined for possible inguinal hernias and there was a very small one on the right side. There was a small amount of turbid fluid in the pelvis which was suctioned out and the sigmoid colon also appeared to be normal. Given these findings, at this point, we determined that the procedure could be terminated as the small-bowel was indeed viable and not ischemic. It is possible that the one peritoneal band identified in the RLQ was the source of the obstruction. Desufflation was then obtained. All the trocars were removed under direct visualization and the skin incisions were closed using 4-0 Monocryl suture. Sterile dressing was placed using skin glue over the incisions. At the end of the case, all counts were correct. The patient's general endotracheal anesthesia was reversed and she was taken to the PACU in stable condition. Of note, the patient had a River catheter placed prior to the surgery beginning and this was removed prior to extubating the patient. [id number]/[facility] #: [id number] MTDD
[2018-04-10 07:13] LABS: ABS Basophils 0 10^3/ul (0-0.2); ABS Eosinophils 0 10^3/ul (0-0.6); ABS Lymphocytes 2.6 10^3/ul (1.0-4.8); ABS Monocytes 0.8 10^3/ul (0-0.8); ABS Nucleated RBC 0 10^3/ul; Eosinophil % 0.3 %; Hematocrit 35 % (35-47); Hemoglobin 11.6 g/dl (12.0-16.0); Lymphocyte % 34.9 %; Mean Corpuscular HGB Conc 33 g/dl (31-36); Mean Corpuscular Hemoglobin 32 pg (27-31); Mean Corpuscular Volume 96 fL (80-97); Mean Platelet Volume 7.8 fL (7.4-10.4); Nucleated Red Blood Cells % 0.1; Platelet Count 165 10^3/ul (150-450); Red Blood Count 3.61 10^6/ul (4.00-5.40); Red Cell Distribution Width 13 % (10.5-15); White Blood Count 7.5 10^3/ul (3.5-10.8)
[2018-04-10 07:38] LABS: BUN/Creatinine Ratio 18.5 (8-20); Calcium 8.7 mg/dL (8.6-10.3); EGFR African American 110.3 (>60); EGFR Non-African American 91.2 (>60)
--- NOTE | 2018-04-10 12:02 | PN ---
Progress Note - Progress Note Date of Service: 04/10/18 Note: Surgery Progress note S: Patient was seen this morning approximately 8am. Patient is doing well. She has no pain. She is tolerating CLD without nausea or emesis. She is ambulating, urinating and passing gas. O: Vital Signs - 24 hr 04/09/18 04/09/18 04/09/18 12:07 12:37 13:06 Temperature 98.1 F 97.8 F Pulse Rate 61 70 Respiratory 16 16 16 Rate Blood Pressure 111/58 115/57 (mmHg) O2 Sat by Pulse 100 100 Oximetry 04/09/18 04/09/18 04/09/18 15:06 15:20 16:57 Temperature 98.0 F 97.7 F 97.7 F Pulse Rate 79 64 61 Respiratory 16 16 16 Rate Blood Pressure 111/51 103/57 112/54 (mmHg) O2 Sat by Pulse 96 99 99 Oximetry 04/09/18 04/09/18 04/09/18 19:25 20:00 23:32 Temperature 98.5 F 98.7 F Pulse Rate 72 72 Respiratory 18 18 16 Rate Blood Pressure 120/54 98/46 (mmHg) O2 Sat by Pulse 100 96 Oximetry 04/10/18 04/10/18 04/10/18 03:30 07:31 10:53 Temperature 99.1 F 99.1 F Pulse Rate 65 68 Respiratory 18 16 16 Rate Blood Pressure 97/56 111/59 (mmHg) O2 Sat by Pulse 99 98 Oximetry Laboratory Results - last 24 hr 04/10/18 04/10/18 06:46 06:46 WBC 7.5 RBC 3.61 L Hgb 11.6 L Hct 35 MCV 96 MCH 32 H MCHC 33 RDW 13 Plt Count 165 MPV 7.8 Neut % (Auto) 53.3 Lymph % (Auto) 34.9 [place] % (Auto) 11.3 Eos % (Auto) 0.3 Baso % (Auto) 0.2 Absolute Neuts (auto) 4.0 Absolute Lymphs (auto) 2.6 Absolute Monos (auto) 0.8 Absolute Eos (auto) 0 Absolute Basos (auto) 0 Absolute Nucleated RBC 0 Nucleated RBC % 0.1 Sodium 140 Potassium 4.0 Chloride 108 Carbon Dioxide 26 Anion Gap 6 BUN 12 Creatinine 0.65 Est GFR ( Amer) 110.3 Est GFR (Non-Af Amer) 91.2 BUN/Creatinine Ratio 18.5 Glucose 92 Calcium 8.7 Intake & Output 04/09/18 04/10/18 04/10/18 22:59 06:59 14:59 Intake Total 280 1040 200 Output Total 1000 600 750 Balance -720 440 -550 Weight 140 lb Intake: IV Fluids 990 LR 990 Oral 280 50 200 Output: Urine 1000 600 750 Other: Estimated Void Medium Physical exam: abd soft, NTND, incisions c/d/i A/P: Patient a 68 yo F with no prior adominal surgeries who presented with severe abdominal pain and possible closed loop obstruction on CT, POD 1 from dx lap and lysis of adhesions, doing well. - Plan to DC today after tolerating regular lunch - Return precautions discussed with patient. She should return to see me in 1- 2 weeks.
--- NOTE | 2018-04-10 12:30 | DS ---
CC: Dr. Simi Anaya.* DISCHARGE SUMMARY: DATE OF ADMISSION: 04/09/18 DATE OF DISCHARGE: 04/10/18 ATTENDING SURGEON: Dr. Sena Sena.* (DICTATED BY JEN JAMA) HOSPITAL COURSE: Please refer to admission history and physical and operative report for details. Briefly, the patient presented with signs, symptoms, and imaging consistent with a small bowel obstruction including possible closed loop obstruction. She was taken to the operating room on 04/09/18, at which time underwent diagnostic laparoscopy with lysis of adhesions. There was an apparent loop of bowel that was hyperemic, but it appeared to already have been released at the time of laparoscopy. The bowel was run from the Ligament of Treitz to the cecum and there were no other points of obstruction or notable adhesions. See operative note for specifics. The patient has had a uneventful postoperative course and as of the morning of discharge is essentially pain free and tolerating clear liquids. Her diet was to be advanced prior to discharge. PHYSICAL EXAMINATION: On the morning of discharge: Temperature 99.1, blood pressure 111/59, pulse 68, respirations 16, and room air saturation is 98%. Heart: Regular rate and rhythm. Lungs are clear to auscultation. Abdomen: Bowel sounds present. Flat, nondistended, soft, and nontender to palpation. Laparoscopic incision site is healing well with skin glue in place. IMPRESSION: Status post laparoscopy with lysis of adhesions for small bowel obstruction, doing well and ready for discharge home. The patient was seen with Dr. Sena. PLAN: Home today. Instructions were reviewed regarding advancement of diet, wound care, and activity. She has a follow up with our office on 04/17/[address] Sena. JEN JAMA [id number]/[facility] #: [id number] MTDAllyssa
[2018-04-10 13:40] VITALS: BP 115/64
== END 2018-04-10 13:25 | disposition home or self-care (01) | DRG 224 ==
LOC: ED 02:41 → OR 06:52 → SSU 09:34
PROVIDERS: ADMIT Surgery; ATTEND Surgery
PROC: 0DN84ZZ Release Small Intestine, Percutaneous Endoscopic Approach (ICD-10-PCS; 2018-04-09)
PROC: 0DNF4ZZ Release Right Large Intestine, Percutaneous Endoscopic Approach (ICD-10-PCS; principal; 2018-04-09 07:30)
DX: K56.50 Intestinal adhesions [bands], unspecified as to partial versus complete obstruction (principal); M16.12 Unilateral primary osteoarthritis, left hip; Z88.8 Allergy status to other drugs, medicaments and biological substances; Z87.891 Personal history of nicotine dependence
CPT/HCPCS: 36415; 74177; 80048; 80053; 81003; 81015; 82150; 83605; 83690; 83735; 85025; 85610; 85730; 86140; 87086; 93005; 99284; J0330; J0690; J1100; J1885; J2250; J2270; J2405; J2704; J2710; J2765; J3010; J3475; Q9967

== ENCOUNTER 2019-08-14 10:30 | Observation (INO) ==
[~2019-08-14 10:30] MED LIST changes: +Buffered Lidocaine 1% SYRIN 1 ml INTRADERM ONE; -Dexamethasone IV* 4 MG/ML 1 ML (4 MG) IV SLOW PU ONE; -Famotidine IV* 10 MG/ML 2 ML (20 mg) IV ONE; +Lactated Ringers 1000 ml BAG 1,000 ML IV SCH; +ceFAZolin 2 GM PREMIX in ORs 2 GM/50 ML BAG ONE
[2019-08-14] MEDS ORDERED: Dexmedetomidine 200 mcg/2 ml 2 ml VIAL (200 mcg) ONE (10:55)
[2019-08-14] MEDS ORDERED: Propofol 10 MG/ML 20 ML BTL ONE (10:55)
[2019-08-14] MEDS ORDERED: Lidocaine 2% PF 5 ML VIAL ONE (10:55)
[2019-08-14] MEDS ORDERED: Midazolam 2 mg/2 ml VIAL 1 mg/ml 2 ml VIAL (2 mg) ONE (10:55)
[2019-08-14] MEDS ORDERED: ROPIVACAINE 5 MG/ML 30 ML BTL (0.5%) ONE (10:56)
[2019-08-14] MEDS ORDERED: Rocuronium 50 mg VIAL 10 mg/ml 5 ml VIAL (50 mg) ONE (11:06)
[2019-08-14] MEDS ORDERED: Metoclopramide 5 MG/ML VIAL (10 mg) ONE (11:40)
[2019-08-14] MEDS ORDERED: Ondansetron 4 mg VIAL 2 MG/ML 2 ml VIAL ONE (11:40)
[2019-08-14] MEDS ORDERED: Acetaminophen IV 1 GM/100ML 100 ML ONE (11:43)
[2019-08-14] MEDS ORDERED: EPHEDrine (Pressors) 50 MG/ML VIAL ONE (13:37)
[2019-08-14] MEDS ORDERED: Ketamine HCL 50 mg/ml 10 ml VIAL (500 MG) ONE (14:51)
[2019-08-14] MEDS ORDERED: Bupivacaine 0.5% SDV PF 30ML VIAL ONE (14:52)
[2019-08-14] MEDS ORDERED: HYDROmorphone 1 MG/1 ML SYRINGE IV PRN (15:17)
[2019-08-14] MEDS ORDERED: Naloxone 0.4 mg VIAL 0.4 mg/ml 1 ml VIAL IV PRN (15:17)
[2019-08-14] MEDS ORDERED: Ondansetron 4 mg VIAL 2 MG/ML 2 ml VIAL IV PRN ×2 (15:17→15:38)
[2019-08-14] MEDS ORDERED: oxyCODONE/Acetamin 5/325 mg TAB PO PRN ×2 (15:38)
[2019-08-14] MEDS ORDERED: diPHENhydraMINE IV 50 MG/ML 1 ml VIAL (BENADRYL) IV PRN (15:38)
[2019-08-14] MEDS ORDERED: Magnesium Hydroxide LIQ 30 ML UDC PO PRN (15:38)
[2019-08-14] MEDS ORDERED: Ondansetron ODT 4 mg TAB 4 MG TAB PO PRN (15:38)
[2019-08-14] MEDS ORDERED: Lactulose 30 ml UDC PO PRN (15:38)
[2019-08-14] MEDS ORDERED: Morphine 2 MG/ML SYRINGE IV PRN (15:38)
[2019-08-14] MEDS ORDERED: diPHENhydraMINE 25 mg TAB PO PRN (15:38)
[2019-08-14] MEDS ORDERED: Polyethylene Glycol 3350 17 GM PACKET PO PRN (15:50)
[2019-08-14] MEDS ORDERED: Prochlorperazine 5 mg/ml 2 ml VIAL (10 mg) ONE (21:31)
[2019-08-14] MEDS ORDERED: NS 0.9% 500 ml BAG 500 ML IV ONE (21:49)
[2019-08-14] MEDS: Lactated Ringers 1000 ml BAG 1,000 ML IV SCH (22:30)
[2019-08-14 22:31] LABS: ABS Monocytes 0.8 10^3/ul (0-0.8); Eosinophil % 0.2 %; Hematocrit 32 % (35-47); Lymphocyte % 9.2 %; Mean Corpuscular HGB Conc 34 g/dL (31-36); Mean Corpuscular Hemoglobin 33 pg (27-31); Mean Corpuscular Volume 97 fL (80-97); Mean Platelet Volume 7.5 fL (7.4-10.4); Platelet Count 150 10^3/uL (150-450); Red Blood Count 3.32 10^6 /uL (3.70-4.87); Red Cell Distribution Width 12 % (10-15); White Blood Count 10.9 10^3/uL (3.5-10.8)
[2019-08-14] MEDS: ceFAZolin 1 GM ADVAN(*) 1 GM in NS 0.9% 50 ML 50 ML IVPB SCH (22:36)
[2019-08-14] MEDS: Magnesium Hydroxide LIQ 30 ML UDC PO SCH (22:39)
[2019-08-14 22:49] LABS: Calcium 8.4 mg/dL (8.6-10.3); EGFR Non-African American 83.5 (>60); Magnesium 1.7 mg/dL (1.9-2.7); Potassium 3.8 mmol/L (3.5-5.0)
[2019-08-14] MEDS ORDERED: Magnesium Sulfate 2 gm BAG 2 GM/50 ML BAG IVPB ONE (23:03)
[2019-08-15] MEDS: ceFAZolin 1 GM ADVAN(*) 1 GM in NS 0.9% 50 ML 50 ML IVPB SCH ×2 (05:40→14:05)
[2019-08-15 07:22] LABS: Hematocrit 30 % (35-47); Hemoglobin 10.7 g/dL (12.0-16.0); Mean Platelet Volume 7.9 fL (7.4-10.4); Platelet Count 146 10^3/uL (150-450)
[2019-08-15 07:41] LABS: BUN/Creatinine Ratio 14.7 (8-20); Calcium 8.1 mg/dL (8.6-10.3); EGFR African American 104.4 (>60); EGFR Non-African American 86.3 (>60); Potassium 3.9 mmol/L (3.5-5.0)
[2019-08-15] MEDS: Vitamin THERAPEUTIC TAB PO SCH (08:39)
[2019-08-15] MEDS: Magnesium Hydroxide LIQ 30 ML UDC PO SCH ×2 (08:44→21:30)
[2019-08-15] MEDS: Lactated Ringers 1000 ml BAG 1,000 ML IV SCH (11:17)
[2019-08-16 05:55] LABS: Hematocrit 30 % (35-47); Hemoglobin 10.1 g/dL (12.0-16.0); Mean Platelet Volume 7.6 fL (7.4-10.4); Platelet Count 147 10^3/uL (150-450)
[2019-08-16 07:48] VITALS: BP 101/52
[2019-08-16] MEDS: Magnesium Hydroxide LIQ 30 ML UDC PO SCH (08:59)
[2019-08-16] MEDS: Vitamin THERAPEUTIC TAB PO SCH (08:59)
[2019-08-17] MEDS ORDERED: Scopolamine PATCH Remove NOTE PATCH OFF ONE (18:40)
== END 2019-08-16 10:05 | disposition home or self-care (01) ==
LOC: OR 10:30 → SSU 10:30 → EDSTATUS 13:00
PROVIDERS: ADMIT Orthopaedic Surgery Adult Reconstructive Orthopaedic Surgery; ATTEND Orthopaedic Surgery Adult Reconstructive Orthopaedic Surgery